=== PATIENT | male | born 1935 | race Caucasian/White ===

== ENCOUNTER 2020-07-26 21:55 | Emergency (ER) | payer MEDICARE, BC ==
[~2020-07-26] VITALS: Ht 152.4 cm; Wt 83.9 kg
[2020-07-26 22:38] VITALS: BP 000/000
--- NOTE | 2020-07-26 22:59 | NUR ---
ASSISTED IN PT CODE. APPROX FROM 2139 TO 2214. PT .
== END 2020-07-26 22:08 ==
LOC: M.ERS 21:55 → EDBD 21:55 → M.ERS 22:08
DX: I46.9 Cardiac arrest, cause unspecified (principal); U07.1 COVID-19